=== PATIENT | male | born 1940 | race Caucasian/White ===

== ENCOUNTER 2017-10-18 23:43 | Inpatient (IN) | payer OTHER ==
[~2017-10-18] VITALS: Ht 154.9 cm; Wt 63.1 kg
[2017-10-19 00:22] LABS: BASOPHIL (%) 0.1 % (0-1); EOSINOPHIL (%) 0 % (0-5); HEMATOCRIT 37.6 % (38.0-50.0); HEMOGLOBIN 13.4 G/DL (12.5-16.6); IMMATURE GRANULOCYTE (%) 0.7 % (0.0-0.7); LYMPHOCYTE (%) 3.4 % (15-42); MCHC 35.6 G/DL (30.0-36.0); MCV 98.2 FL (86-99); MONOCYTE (%) 2.2 % (3-12); MONOCYTE COUNT 0.6 K/uL (0-0.8); NEUTROPHIL (%) 93.6 % (45-76); NEUTROPHIL COUNT 26.5 K/uL (1.8-6.4); PLATELET COUNT 248 K/uL (156-360); RBC DIS.WIDTH-CV 12.9 % (11.8-14.6); RBC DIS.WIDTH-SD 46.1 % (39-53); RED BLOOD COUNT 3.83 M/uL (4.00-5.50); WHITE BLOOD COUNT 28.3 K/uL (4.1-10.2)
[2017-10-19 00:28] LABS: INTER. NORMALIZED RATIO 1.3
[2017-10-19 00:31] LABS: PTT 24.4 SEC (25-37)
[2017-10-19 00:34] LABS: ALBUMIN 3.8 g/dL (3.2-4.8); CHLORIDE 94 mEq/L (99-109); POTASSIUM 4.5 mEq/L (3.7-5.4); SODIUM 131 mEq/L (136-147)
[2017-10-19 00:35] LABS: MAGNESIUM 1.7 mg/dL (1.3-2.7)
[2017-10-19 00:36] LABS: GLUCOSE 176 mg/dL (70-99); TOTAL PROTEIN 8.2 g/dL (6.4-8.3)
[2017-10-19 00:40] LABS: ALKALINE PHOSPHATASE 147 IU/L (3-129); CREATININE 1.7 mg/dL (0.6-1.3)
[2017-10-19 00:41] LABS: UREA NITROGEN (BUN) 29 mg/dL (9-23)
[2017-10-19 00:42] LABS: AST (GOT) 12 IU/L (2-34)
[2017-10-19 00:43] LABS: ALT (GPT) 15 IU/L (3-49); LIPASE 6 U/L (1.0-51.0)
[2017-10-19 00:45] LABS: GFR ESTIMATE (CALCULATED) 42 mL/min/ (58.99-99999); TROP-I INTERPRETATION NEGATIVE; TROPONIN-I < 0.01 ng/mL (0.0-0.30)
[2017-10-19 01:14] LABS: APPEARANCE SL.HAZY ((CLEAR)); BILIRUBIN NEGATIVE; BLOOD NEGATIVE; COLOR YELLOW ((YELLOW)); GLUCOSE (STRIP) NEGATIVE; KETONES NEGATIVE; LEUKOCYTES NEGATIVE; NITRITE NEGATIVE; PROTEIN (STRIP) NEGATIVE; SPECIFIC GRAVITY 1.018 (1.000-1.030); UROBILINOGEN 0.2 MG/DL (0.2-1.0)
[2017-10-19 01:23] LABS: BACTERIA RARE /HPF; EPITHELIAL CELLS RARE /HPF; MUCUS 2+ /LPF; RED BLOOD CELLS 0-5 /HPF (0-5); UCUL ADDED? NO; WHITE BLOOD CELLS 0-5 /HPF (0-5)
[2017-10-19] MEDS ORDERED: INCRUSE ELLI62.5 MCG IH (01:28)
[2017-10-19] MEDS ORDERED: LOPRESSOR25 MG PO (01:29)
[2017-10-19] MEDS ORDERED: AMLODIPINE BESY10 MG PO (01:32)
[2017-10-19] MEDS ORDERED: MED PASS 2.0 PO (01:32)
[2017-10-19] MEDS ORDERED: ADVAIR HFA120 INHAL2 IH (01:33)
[2017-10-19] MEDS ORDERED: PERCOCET 5/31 TABLET PO (01:35)
[2017-10-19] MEDS ORDERED: ZOFRAN4 MG PO (01:38)
[2017-10-19] MEDS ORDERED: ATROVENT 00.5 MG/2.5 IH (01:38)
[2017-10-19] MEDS ORDERED: MILK OF MAGN PO (01:39)
[2017-10-19] MEDS ORDERED: DULCOLAX10 MG PR (01:40)
[2017-10-19] MEDS ORDERED: FLEET ENEMA-AD118 ML PR (01:41)
[2017-10-19] MEDS ORDERED: TYLENOL325 M2 PO (01:43)
[2017-10-19] MEDS ORDERED: CYANOCOBALAM1000 MCG PO (01:44)
[2017-10-19] MEDS ORDERED: FOLIC ACID0.4 MG PO (01:45)
[2017-10-19] MEDS ORDERED: MULTI-VITAMIN1 EAC4 PO (01:46)
[2017-10-19] MEDS ORDERED: ATORVASTATIN CA40 MG PO (01:46)
[2017-10-19 05:37] VITALS: BP 132/59
[2017-10-19 07:14] VITALS: BP 104/56
[2017-10-19 12:07] VITALS: BP 108/54
[2017-10-19 16:29] VITALS: BP 111/53
[2017-10-19 19:38] VITALS: BP 102/55
[2017-10-20 04:36] VITALS: BP 114/56
[2017-10-20 05:53] LABS: HEMATOCRIT 30.1 % (38.0-50.0); MCHC 33.2 G/DL (30.0-36.0); PLATELET COUNT 222 K/uL (156-360); RBC DIS.WIDTH-CV 13.2 % (11.8-14.6); RBC DIS.WIDTH-SD 49.7 % (39-53); WHITE BLOOD COUNT 24.3 K/uL (4.1-10.2)
[2017-10-20 05:54] LABS: MCV 102.4 FL (86-99); RED BLOOD COUNT 2.94 M/uL (4.00-5.50)
[2017-10-20 06:02] LABS: ALBUMIN 2.8 G/DL (3.2-4.8); ALKALINE PHOSPHATASE 82 IU/L (3-129); ALT (GPT) 10 IU/L (3-49); AST (GOT) 11 IU/L (2-34); CHLORIDE 106 MEQ/L (99-109); GLUCOSE 152 mg/dL (70-99); POTASSIUM 3.7 MEQ/L (3.7-5.4); SODIUM 136 MEQ/L (136-147); TOTAL BILIRUBIN 0.4 MG/DL (0.0-1.0); TOTAL PROTEIN 6.1 G/DL (6.4-8.3); UREA NITROGEN (BUN) 21 mg/dL (9-23)
[2017-10-20 06:04] LABS: GFR ESTIMATE (CALCULATED) > 59 mL/min/ (58.99-99999)
[2017-10-20 07:40] VITALS: BP 106/54
[2017-10-20 11:55] VITALS: BP 107/55
[2017-10-20 15:35] VITALS: BP 116/54
[2017-10-20 23:57] VITALS: BP 110/56
[2017-10-21 07:15] VITALS: BP 113/56
[2017-10-21 11:35] VITALS: BP 125/61
[2017-10-21 14:55] VITALS: BP 112/56
[2017-10-21 23:05] VITALS: BP 123/60
[2017-10-22 06:52] LABS: HEMATOCRIT 29.9 % (38.0-50.0); HEMOGLOBIN 10.3 G/DL (12.5-16.6); MCH 35.2 PG (29.0-34.0); MCHC 34.4 G/DL (30.0-36.0); PLATELET COUNT 221 K/uL (156-360); RBC DIS.WIDTH-CV 13.2 % (11.8-14.6); RBC DIS.WIDTH-SD 49.1 % (39-53); RED BLOOD COUNT 2.93 M/uL (4.00-5.50); WHITE BLOOD COUNT 13.2 K/uL (4.1-10.2)
[2017-10-22 06:56] VITALS: BP 128/58
[2017-10-22 15:32] VITALS: BP 140/63
[2017-10-22 15:40] VITALS: BP 140/63; BP 145/60
[2017-10-22 23:30] VITALS: BP 123/59
[2017-10-23 04:00] VITALS: BP 125/78
[2017-10-23 06:10] LABS: BASOPHIL (%) 0.1 % (0-1); EOSINOPHIL (%) 0 % (0-5); HEMATOCRIT 31.8 % (38.0-50.0); HEMOGLOBIN 10.7 G/DL (12.5-16.6); IMMATURE GRANULOCYTE (%) 1.1 % (0.0-0.7); LYMPHOCYTE (%) 14.2 % (15-42); LYMPHOCYTE COUNT 1.3 K/uL (1.0-2.8); MCH 33.8 PG (29.0-34.0); MCHC 33.6 G/DL (30.0-36.0); MCV 100.3 FL (86-99); NEUTROPHIL (%) 73.6 % (45-76); NEUTROPHIL COUNT 6.5 K/uL (1.8-6.4); PLATELET COUNT 253 K/uL (156-360); RBC DIS.WIDTH-CV 12.9 % (11.8-14.6); RED BLOOD COUNT 3.17 M/uL (4.00-5.50); WHITE BLOOD COUNT 8.9 K/uL (4.1-10.2)
[2017-10-23 06:45] LABS: CHLORIDE 104 MEQ/L (99-109); CREATININE 0.7 MG/DL (0.6-1.3); GFR ESTIMATE (CALCULATED) > 59 mL/min/ (58.99-99999); GLUCOSE 131 mg/dL (70-99); POTASSIUM 3.7 MEQ/L (3.7-5.4); SODIUM 139 MEQ/L (136-147); UREA NITROGEN (BUN) 18 mg/dL (9-23)
[2017-10-23 07:28] VITALS: BP 176/72
[2017-10-23 16:17] VITALS: BP 169/69
[2017-10-24 00:06] VITALS: BP 140/67
[2017-10-24] MEDS ORDERED: CEFTRIAXONE2 G1 IV (07:42)
[2017-10-24 07:46] VITALS: BP 142/65
[2017-10-24] MEDS ORDERED: ROCEPHIN2 GM/50 ML IV (07:54)
== END 2017-10-24 14:50 | DRG 871 ==
LOC: EME → EDBD 23:43 → EME 23:43 → EDOF 10-19 02:00 → 2EASTP 10-19 02:00 → ENRESERV 10-19 02:01 → 2EASTP 10-19 05:30 → ENRESERV 10-23 01:21 → 2EAST 10-23 01:24
PROVIDERS: Emergency Medicine; Family Medicine; Internal Medicine; Internal Medicine Pulmonary Disease
DX: A40.3 Sepsis due to Streptococcus pneumoniae (principal); J13 Pneumonia due to Streptococcus pneumoniae; N17.9 Acute kidney failure, unspecified; J69.0 Pneumonitis due to inhalation of food and vomit; J44.0 Chronic obstructive pulmonary disease with (acute) lower respiratory infection; J44.1 Chronic obstructive pulmonary disease with (acute) exacerbation; E87.2 Acidosis; E87.1 Hypo-osmolality and hyponatremia; J90 Pleural effusion, not elsewhere classified; R13.10 Dysphagia, unspecified; R41.0 Disorientation, unspecified; I69.354 Hemiplegia and hemiparesis following cerebral infarction affecting left non-dominant side; N21.0 Calculus in bladder; N32.3 Diverticulum of bladder; R32 Unspecified urinary incontinence; K21.0 Gastro-esophageal reflux disease with esophagitis; K27.9 Peptic ulcer, site unspecified, unspecified as acute or chronic, without hemorrhage or perforation; I10 Essential (primary) hypertension; E78.5 Hyperlipidemia, unspecified; Z87.81 Personal history of (healed) traumatic fracture; F03.90 Unspecified dementia, unspecified severity, without behavioral disturbance, psychotic disturbance, mood disturbance, and anxiety; Z87.01 Personal history of pneumonia (recurrent); Z87.891 Personal history of nicotine dependence; Z87.440 Personal history of urinary (tract) infections
CPT/HCPCS: 71046; 71250; 74022; 74176; 74230; 80048; 80053; 81003; 83605; 83690; 83735; 84484; 85025; 85027; 85610; 85730; 87040; 87070; 87077; 87086; 87181; 87205; 87502; 87801; 92610 GN; 92611 GN; 93005; 94010; 94640; 94640 76; 94667; 94668; 94760; 94799; 97530 GP; 99202; 99281; 99285; J0696; J2405; J2543; J2920; J2930; J3370; J7030; J7050; S0028